=== PATIENT | male | born 1990 | race Caucasian/White ===

== ENCOUNTER → 2017-07-21 | Outpatient (CLI) | payer OTHER ==
[~2017-07-21] MED LIST: ACET-1311 PEG; ACET650S10 PR; AZIT250T PO; BISA10SU3 PR; DEXT1SYP21 PEG; DIVA500T59 PEG; DONE5TAB9 PEG; DSY/150 PEG; DULCOLAX SUPPOSITORY RE; ENOX30IN4 SQ; GABA-112 PEG; GABA1SOL4 PEG; HYOS1TAB PEG; HYOS1TAB SL; LITHIUM PEG; LORA-741 PEG; LORA2CON PEG; MELA1TAB5 PEG; MOML PEG; MOMLX PEG; MRLP17 PEG; NUTR1LIQ PEG; NYSS/ BU; OXYC10SO PEG; OXYC10SO PO; OXYC15TA89 PEG; POLY335019 PEG; PROP20TA66 PEG; SODIENE PR; TMFUDL75 PO; TRAZ100T29 PEG; VALP250S16 PEG; ZIPR1CAP5 PEG; ZIPR60CA PEG; [UNRECOGNIZED DRUG - CODE] PEG; [UNRECOGNIZED DRUG - CODE] PEG; [UNRECOGNIZED DRUG - OTHER] PEG
[2017-07-21 16:07] LABS: HEMATOCRIT 45.5 % (42-52); HEMOGLOBIN 14.4 g/dL (14.0-18.0); MEAN CELL VOLUME 89.4 fL (80-100); MEAN CORPUSCULAR HEMOGLOBIN 28.3 pg (25-34); MEAN CORPUSCULAR HGB CONC 31.6 g/dl (32-36); PLATELET COUNT 166 K/uL (130-400); RED CELL DISTRIBUTION WIDTH CV 14.7 % (11.5-14.5); WHITE BLOOD COUNT 8.43 K/uL (4.8-10.8)
[2017-07-21 16:08] LABS: BASO % 0.4 %; BASO ABS # 0.03 K/uL (0-0.2); EOS % 0.8 %; EOS ABS # 0.07 K/uL (0-0.5); IG# 0.03 K/uL (0.00-0.02); LYMPH % 30.8 %; MEAN PLATELET VOLUME 12.5 fL (7.4-10.4); MONO % 7.7 %; MONO ABS # 0.65 K/uL (0.11-0.59); NEUT % 59.9 %; NEUT ABS # 5.05 K/uL (1.4-6.5)
[2017-07-21 16:21] LABS: ALT/SGPT 25 U/L (12-78); AST/SGOT 11 U/L (15-37); BLOOD UREA NITROGEN 14 mg/dl (7-18); CARBON DIOXIDE 29 mmol/L (21-32); CREATININE 0.66 mg/dl (0.60-1.40); GLUCOSE 98 mg/dl (70-99); POTASSIUM 3.7 mmol/L (3.5-5.1); SODIUM 141 mmol/L (136-145)
[2017-07-21 16:24] LABS: ALKALINE PHOSPHATASE 132 U/L (45-117); TOTAL PROTEIN 6.9 gm/dl (6.4-8.2)
== END ==
LOC: C.LABUPNIT 15:54
PROVIDERS: ATTEND Nurse Practitioner Family
DX: R50.9 Fever, unspecified (principal)

== ENCOUNTER → 2017-07-22 | Outpatient (CLI) | payer OTHER | LOC: C.LABUPNIT 08:55 | PROVIDERS: ATTEND Nurse Practitioner Family | DX: N39.0 Urinary tract infection, site not specified (principal) ==

== ENCOUNTER 2017-08-07 03:39 | Observation (INO) | payer OTHER ==
[~2017-08-07] VITALS: Ht 177.8 cm; Wt 81.1 kg
[2017-08-07] MEDS ORDERED: DONE5TAB9 PEG (03:49)
[2017-08-07] MEDS ORDERED: MELA1TAB5 PEG (03:52)
[2017-08-07] MEDS ORDERED: POLY335019 PEG (03:53)
[2017-08-07] MEDS ORDERED: TRAZ100T29 PEG (03:55)
[2017-08-07] MEDS ORDERED: ZIPR60CA PEG (03:57)
[2017-08-07] MEDS ORDERED: LORA-741 PEG (03:58)
[2017-08-07] MEDS ORDERED: ENOX30IN4 SQ (03:59)
[2017-08-07] MEDS ORDERED: LITHIUM PEG (04:02)
[2017-08-07] MEDS ORDERED: DIVA500T59 PEG (04:04)
[2017-08-07] MEDS ORDERED: SODIUM CHLORIDE 0.9% 1000ML 2,000 ML IV STA (04:04)
[2017-08-07] MEDS ORDERED: ACETAMINOPHEN 325 MG SUPP PR STA (04:04)
[2017-08-07] MEDS ORDERED: [UNRECOGNIZED DRUG - CODE] PEG (04:06)
[2017-08-07] MEDS ORDERED: GABA-112 PEG (04:09)
[2017-08-07] MEDS ORDERED: OXYC15TA89 PEG (04:12)
[2017-08-07] MEDS ORDERED: [UNRECOGNIZED DRUG - OTHER] PEG (04:14)
[2017-08-07] MEDS ORDERED: VALP250S16 PEG (04:15)
[2017-08-07] MEDS ORDERED: NYSS/ BU (04:18)
[2017-08-07] MEDS ORDERED: NUTR1LIQ PEG (04:20)
[2017-08-07] MEDS ORDERED: ACET-1311 PEG (04:22)
[2017-08-07] MEDS ORDERED: ACET650S10 RE (04:24)
[2017-08-07] MEDS ORDERED: IBUPROFEN 800 MG TAB PO STA (04:25)
[2017-08-07] MEDS ORDERED: DULCOLAX SUPPOSITORY RE (04:26)
[2017-08-07] MEDS ORDERED: HYOS1TAB SL (04:28)
[2017-08-07] MEDS ORDERED: MOML PEG (04:29)
[2017-08-07] MEDS ORDERED: IBUPROFEN 200 MG/10 ML UDC ONE (05:04)
[2017-08-07 05:10] LABS: BASO % 0.1 %; BASO ABS # 0.01 K/uL (0-0.2); HEMOGLOBIN 14.1 g/dL (14.0-18.0); IG# 0.07 K/uL (0.00-0.02); LYMPH % 11.8 %; LYMPH ABS # 0.87 K/uL (1.2-3.4); MEAN CELL VOLUME 88.7 fL (80-100); MEAN CORPUSCULAR HEMOGLOBIN 29.1 pg (25-34); MEAN CORPUSCULAR HGB CONC 32.8 g/dl (32-36); MEAN PLATELET VOLUME 11.3 fL (7.4-10.4); MONO % 16.6 %; MONO ABS # 1.23 K/uL (0.11-0.59); NEUT % 70.6 %; NEUT ABS # 5.21 K/uL (1.4-6.5); PLATELET COUNT 141 K/uL (130-400); RED CELL DISTRIBUTION WIDTH CV 14.7 % (11.5-14.5); RED CELL DISTRIBUTION WIDTH SD 47.8 fL (36.4-46.3); WHITE BLOOD COUNT 7.39 K/uL (4.8-10.8)
[2017-08-07 05:25] LABS: INR 1.1 (0.9-1.1); PTT PATIENT 28.6 SECONDS (21.0-31.0)
[2017-08-07 05:30] LABS: ALBUMIN 3.1 gm/dl (3.4-5.0); CALCIUM 8.6 mg/dl (8.5-10.1); CREATININE 0.72 mg/dl (0.60-1.40)
[2017-08-07 05:32] LABS: TOTAL PROTEIN 7.1 gm/dl (6.4-8.2)
[2017-08-07 05:44] LABS: INFLUENZA B ANTIGEN Neg for Influ B (NEG)
[2017-08-07] MEDS ORDERED: OSELTAMIVIR PHOSPHATE SUSP 75 MG/12.5 ML UDP PO SCH (06:00)
[2017-08-07] MEDS ORDERED: MAGNESIUM HYDROXIDE SUSP 30 ML UDC PEG PRN (06:15)
[2017-08-07] MEDS ORDERED: HYOSCYAMINE SULFATE 0.125 MG SL TAB SL PRN (06:15)
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
[2017-08-07] MEDS ORDERED: POLYETHYLENE (MIRALAX) 17 GM PACK PO PRN (07:00)
--- NOTE | 2017-08-07 07:00 | DIAGNOSTIC IMAGING REPORT ---
SINGLE VIEW CHEST CLINICAL HISTORY: Sepsis. FINDINGS: An AP, portable, upright chest radiograph is obtained. No prior studies are available for comparison at the time of dictation. The examination is degraded by portable technique and patient rotation. A ventriculoperitoneal shunt catheter traverses the right chest wall. The cardiomediastinal silhouette is unremarkable. The lungs and pleural spaces are clear. No pneumothorax is seen. The skeletal structures are osteopenic. The bony thorax is grossly intact. IMPRESSION: No acute cardiopulmonary abnormality. Electronically signed by: Kali Diggs M.D. 08/07/2017 6:58 AM Dictated Date/Time: 08/07/2017 6:58 AM
[2017-08-07] MEDS ORDERED: IV FLUIDS COMPLETED PRN (07:15)
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
[2017-08-07] MEDS ORDERED: IMPACT LIQ 1000 ML BAG PEG SCH (08:00)
--- NOTE | 2017-08-07 08:14 | DIAGNOSTIC IMAGING REPORT ---
CT SCAN OF THE BRAIN WITHOUT IV CONTRAST CLINICAL HISTORY: Fall. COMPARISON STUDY: CT of the brain dated 05/09/2008. TECHNIQUE: Unenhanced axial CT scan of the brain is performed from the vertex to the skull base. A dose lowering technique was utilized adhering to the principles of ALARA. CT DOSE: 537.48 mGy.cm FINDINGS: Brain parenchyma: A right posterior parietal approach ventricular ostomy catheter is in place. The tip terminates adjacent to the septum pellucidum at the roof of the third ventricle. Transverse ventricular diameter measures 5.7 cm at the level of the frontal horns. 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 There is no hemorrhage, mass effect, or evidence of acute territorial ischemia by CT criteria. Patel-white matter is preserved. No extra-axial fluid collection is seen. Dural thickening along the left convexity is likely related to previous surgery. Ventricles, sulci, cisterns: There is dilatation of the ventricles out of portion to the cortical sulci. There is no transependymal flow of CSF. Intracranial vasculature: The visualized intracranial vasculature at the skull base is normal in appearance. Calvarium: The skeletal structures are osteopenic. There is evidence of left temporal craniectomy with extensive left-sided craniotomy. A sharif hole is present in the right posterior parietal calvarium. Sinuses and mastoids: Fluid and calcific debris is present within the right sphenoid sinus. The remaining visualized paranasal sinuses are clear. The mastoid air cells are well pneumatized. Orbits: The bony orbits are grossly intact. IMPRESSION: 1. There is no hemorrhage, mass effect, or evidence of acute territorial ischemia by CT criteria. 2. A right parietal approach ventricular shunt catheter is in place. There is ventriculomegaly which is of indeterminant chronicity and significance. Correlation with prior outside imaging studies will be required. 3. 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 Electronically signed by: Kali Diggs M.D. 08/07/2017 8:12 AM Dictated Date/Time: 08/07/2017 8:07 AM
[2017-08-07] MEDS ORDERED: VALPROIC ACID 250 MG/5 ML UDP PEG SCH (09:00)
[2017-08-07] MEDS ORDERED: DIVALPROEX SODIUM 500 MG DELAY RELEASE TAB OPR SCH (09:00)
[2017-08-07 09:39] VITALS: BP 100/63; PULSE 66; TEMP 36.9; O2SAT 96; BMI 25.7
[2017-08-07] MEDS ORDERED: LORAZEPAM 0.5 MG TAB PEG PRN (11:30)
[2017-08-07] MEDS: LORAZEPAM 0.5 MG TAB PEG SCH ×2 (11:35→21:43)
[2017-08-07] MEDS: NYSTATIN SUSP 500,000 U/5 ML UDC BU SCH ×4 (12:14→21:33)
[2017-08-07] MEDS: ZIPRASIDONE 20 MG CAP GT SCH (12:16)
[2017-08-07] MEDS: PROPRANOLOL HCL 20 MG TAB PEG SCH ×3 (12:19→21:34)
[2017-08-07] MEDS: LITHIUM ORAL SOLN 300MG/5 ML UDP PO SCH ×2 (12:20→21:34)
[2017-08-07] MEDS: GABAPENTIN 250 MG/5 ML 470 ML BTL PEG SCH ×3 (12:20→21:48)
[2017-08-07] MEDS: GUAIFENESIN/DEXTROM SYRUP 100MG/10MG 5ML UDC PO SCH ×3 (12:21→21:33)
[2017-08-07] MEDS: ENOXAPARIN 30 MG/0.3 ML SYR SQ SCH ×2 (12:22→21:35)
[2017-08-07] MEDS: OXYCODONE HCL SOLN 5 MG/5 ML UDC PO SCH ×3 (12:28→21:43)
[2017-08-07] MEDS: VALPROIC ACID SYRUP 250 MG/5 ML PEG SCH ×2 (13:26→21:34)
[2017-08-07 17:00] VITALS: Ht 177.8 cm; Wt 81.1 kg
[2017-08-07] MEDS: ACETAMINOPHEN 325 MG TAB PO PRN ×2 (17:31→23:33)
[2017-08-07 17:51] VITALS: BP 95/60; PULSE 55; TEMP 36.3; O2SAT 95
--- NOTE | 2017-08-07 19:40 | Progress Note ---
Progress Note Date of Service Aug 07, 2017. Progress Note Patient admitted this morning and I saw him around 9 AM. Chart was reviewed, history reviewed with patient's mother at the bedside. He was sent over from the senior living as he had a fall getting out of bed and was found to have a fever. He was influenza A positive in the emergency room, chest x-ray was without pneumonia, and he was febrile with tachycardia. His medication reconciliation was reviewed from the senior living and changes were discussed with the pharmacist on the phone. Vitals reviewed Patient lying in bed and is agitated, yelling out not intelligible Regular rate and rhythm, no murmurs Rubs Lungs Clear Bilaterally Abdomen Positive Bowel Sounds Soft Nontender Nondistended, PEG Tube in Place with Mild Erythema around the PEG Tube Site Extremities No Edema [id number] Male with History of TBI, PLEAT TAPER Shunt, PEG Tube, seizure disorder, here with influenza A and sepsis -Continue Tamiflu and supportive care -Continue home medications
[2017-08-07] MEDS: TUBE FEEDING WATER FLUSH NG SCH ×2 (20:00→23:44)
[2017-08-07] MEDS: PEPTAMEN 1.5 CAL 1000ML BAG PEG SCH (20:41)
[2017-08-07] MEDS ORDERED: TRAZODONE HCL 100 MG TAB PO SCH (21:00)
[2017-08-07] MEDS ORDERED: DONEPEZIL HCL 5 MG TAB PO SCH (21:00)
[2017-08-07] MEDS: OSELTAMIVIR PHOSPHATE SUSP 75 MG/12.5 ML UDP PO SCH (21:48)
[2017-08-07 23:14] VITALS: BP 114/77; PULSE 73; TEMP 39; O2SAT 92
[2017-08-07 23:16] VITALS: TEMP 38
[2017-08-08 00:38] VITALS: TEMP 37.7
[2017-08-08 03:02] VITALS: TEMP 37.6
[2017-08-08] MEDS: TUBE FEEDING WATER FLUSH NG SCH ×3 (04:06→12:37)
[2017-08-08 04:16] VITALS: TEMP 37.6
[2017-08-08] MEDS: PEPTAMEN 1.5 CAL 1000ML BAG PEG SCH ×3 (06:24→13:00)
[2017-08-08 07:05] VITALS: BP 119/80; PULSE 65; TEMP 36.4; O2SAT 97
[2017-08-08] MEDS: LORAZEPAM 0.5 MG TAB PEG SCH (07:57)
[2017-08-08] MEDS: OXYCODONE HCL SOLN 5 MG/5 ML UDC PO SCH (07:57)
[2017-08-08] MEDS: NYSTATIN SUSP 500,000 U/5 ML UDC BU SCH ×2 (07:58→13:00)
[2017-08-08] MEDS: VALPROIC ACID SYRUP 250 MG/5 ML PEG SCH (07:58)
[2017-08-08] MEDS: ZIPRASIDONE 20 MG CAP GT SCH (07:58)
[2017-08-08] MEDS: GUAIFENESIN/DEXTROM SYRUP 100MG/10MG 5ML UDC PO SCH (07:59)
[2017-08-08] MEDS: PROPRANOLOL HCL 20 MG TAB PEG SCH (07:59)
[2017-08-08] MEDS: OSELTAMIVIR PHOSPHATE SUSP 75 MG/12.5 ML UDP PO SCH (08:00)
[2017-08-08] MEDS: ENOXAPARIN 30 MG/0.3 ML SYR SQ SCH (08:00)
[2017-08-08] MEDS: LITHIUM ORAL SOLN 300MG/5 ML UDP PO SCH (08:00)
[2017-08-08] MEDS: GABAPENTIN 250 MG/5 ML 470 ML BTL PEG SCH (08:00)
[2017-08-08] MEDS ORDERED: POLYETHYLENE (MIRALAX) 17 GM PACK PO SCH (09:00)
[2017-08-08] MEDS ORDERED: TMFUDL75 PO (09:32)
[2017-08-08] MEDS ORDERED: OXYC10SO PO (09:34)
--- NOTE | 2017-08-08 09:41 | Discharge Instructions ---
Discharge Instructions Date of Service Aug 08, 2017. Admission Reason for Admission: Influenza A Discharge Discharge Diagnosis / Problem: Influenza A Discharge Goals Goal(s): Improve disease control, Therapeutic intervention Activity Recommendations Activity Level: Assistance Required Shower/Bathe: no limitations . Additional Information Patient informed of condition: Yes Advance Directives: No DNR: No Level of Care: Skilled Communicable Disease: Yes (Influenza A) Prognosis: Stable Oxygen at (LPM): N/A Min Catheter: No Instructions / Follow-Up Instructions / Follow-Up Patient admitted with Influenza A, fever. All labs were normal, vitals all normal except fever which has now resolved. Not requiring oxygen, no PNA on chest xray. Mental status at baseline as per mother. Stable for discharge back to [facility] to complete 5 day course Tamiflu. Current Hospital Diet Patient's current hospital diet: Discharge Diet Recommended Diet: N/A (PEG tube feeds) Procedures Procedures Performed: Chest xray Head CT-similar to previous obtained from hospitalization in [place] Pending Studies Studies pending at discharge: yes List of pending studies: Final Blood culture results-no growth to date Physician Orders On Transfer Special Precautions: Seizure/Fall risk Dressing Changes: N/A IV Therapy: None Vital Signs: Routine Weigh: Routine Additional Orders: None POLST Discussion: Not Applicable Medical Emergencies . Who to Call and When: Medical Emergencies: If at any time you feel your situation is an emergency, please call 911 immediately. . Non-Emergent Contact Non-Emergency issues call your: Primary Care Provider Worsening shortness of breath, worsening mental status. . . "Provider Documentation" section prepared by Katlyn Cronin. . Core Measure Problem Core Measures: None
--- NOTE | 2017-08-08 09:46 | Discharge Summary ---
Discharge Summary Date of Service Aug 08, 2017. Discharge Summary Admission Date: Aug 07, 2017 at 07:02 Discharge Date: Aug 08, 2017 Discharge Disposition: snf facility ([facility]) Principal Diagnosis: Influenza A, fever Problems/Secondary Diagnoses: TBI TRIAGE LICENSED PRACTICAL NURSE Shunt in place Seizure disorder PEG tube in place Anxiety disorder Procedures: CT Head CXR Consultations: None Medication Reconciliation New Medications: Oseltamivir Phosphate (Tamiflu) 6 Mg/Ml [place] 75 MG PO BID for 4 Days Continued Medications: Acetaminophen (Tylenol) 325 Mg Tab 650 MG PEG Q4 PRN for TEMP OVER 101, TAB Acetaminophen (Tylenol) 650 Mg Supp 650 MG RE Q6 PRN for MILD PAIN Dextromethorphan (Bulk) (Dextromethorphan) 1 Pow Pow 15 ML PEG TID DOSE 10-100MG/5ML Donepezil HCl (Aricept) 5 Mg Tab 5 MG PEG HS for 90 Days, TAB 3 Refills Enoxaparin (Lovenox) 30 Mg/0.3 Ml Inj 30 MG SQ BID, SYR Enteral Nutrition Formula (Osmolite Hn 1.5 [place]) 1,000 Ml/ Liqd 5 CAN PEG 5XD, CAN Gabapentin (Neurontin) 100 Mg Cap 12 ML PEG TID, CAP DOSE 250MG/5ML Hyoscyamine Sulfate (Levsin) 0.125 Mg Tab 0.125 MG SL Q4 PRN for SECRETIONS, TAB Lorazepam (Ativan) 0.5 Mg Tab 0.5 MG PEG BID, TAB Magnesium Hydroxide (Milk Of Magnesia) 30 Ml Susp 30 ML PEG DIRECTED PRN for CONSTIPATION, ML 1200MG/15ML Melatonin (Kp Melatonin) 3 Mg Tab 6 MG PEG HS PRN for Sleep for 30 Days, #30 TAB Nystatin (Nystatin Suspension) 1 Ml Susp 5 ML BU QID DOSE 065631 UNITS/ML Oxycodone Oral Soln (Roxicodone Oral Soln) 5 Mg/5 Ml Soln 5 MG PO TID for 30 Days Polyethylene Glycol 3350 (Miralax) 1 Pow Pow 17 GM PEG DAILY PRN for CONSTIPATION, #255 GM Trazodone Hcl (Trazodone) 100 Mg Tab 300 MG PEG HS, TAB Valproic Acid Syrup (Depakene) 250 Mg/5 Ml Syrp 20 ML PEG TID, ML DOSE 250MG/5ML Ziprasidone Hcl (Geodon) 60 Mg Cap 60 MG PEG DAILY, CAP [Dulcolax Suppository] () 10 MG RE DIRECTED PRN for CONSTIPATION [[place] Solution] () 5 ML PEG BID LITHIUM SOLUTION 8 MEQ/5ML [Propanolol Hcl] () 20 MG PEG TID Discharge Exam Pt with resolving fevers, unable to give history. Was restless for a while this AM and resting at the time of my exam. ROS unobtainable. Review of Systems: Constitutional: No fever Physical Exam: General Appearance: WD/WN, no apparent distress Eyes: normal inspection ENT: + pertinent finding (no rhinorrhea noted) Neck: trachea midline Respiratory/Chest: lungs clear, normal breath sounds, no respiratory distress, no accessory muscle use Cardiovascular: regular rate, rhythm, no edema, no gallop, no JVD, no murmur , normal peripheral pulses Abdomen / GI: normal bowel sounds, non tender, soft, no organomegaly, + pertinent finding (PEG tube in place) Extremities: normal inspection, no calf tenderness, normal capillary refill , no pedal edema Neurologic/Psychiatric: + disoriented, + pertinent finding (sleeping) Skin: normal color, warm/dry, no rash Hospital Course Patient admitted with Influenza A, fever. All labs were normal, vitals all normal except fever which has now resolved. Not requiring oxygen, no PNA on chest xray. Mental status at baseline as per mother. Stable for discharge back to Snf to complete 5 day course Tamiflu. Total Time Spent: Less than 30 minutes This includes examination of the patient, discharge planning, medication reconciliation, and communication with other providers. Discharge Instructions Please refer to the electronic Patient Visit Report (Discharge Instructions) for additional information. Follow-Up PCP within 1-2 days Additional Copies To [facility]
[2017-08-08 11:18] VITALS: BP 119/80; PULSE 65; TEMP 36.4; O2SAT 97
== END 2017-08-08 13:21 ==
LOC: EDBD 03:39 → C.EDA 03:40 → C.MSN 07:02 → EDBEDREQ 07:41 → ENRESERV 08:19
PROVIDERS: ADMIT Internal Medicine; ATTEND Internal Medicine
DX: J09.X2 Influenza due to identified novel influenza A virus with other respiratory manifestations (principal); B37.0 Candidal stomatitis; G40.909 Epilepsy, unspecified, not intractable, without status epilepticus; Z98.2 Presence of cerebrospinal fluid drainage device; Z87.820 Personal history of traumatic brain injury; Z91.81 History of falling

== ENCOUNTER → 2017-08-23 | Outpatient (CLI) | payer OTHER ==
[~2017-08-23] MED LIST changes: -DIVA500T59 PEG; -OXYC15TA89 PEG
[2017-08-23 08:27] LABS: HEMATOCRIT 40.7 % (42-52); MEAN CELL VOLUME 93.3 fL (80-100); MEAN CORPUSCULAR HEMOGLOBIN 29.8 pg (25-34); MEAN CORPUSCULAR HGB CONC 31.9 g/dl (32-36); MEAN PLATELET VOLUME 12.6 fL (7.4-10.4); PLATELET COUNT 146 K/uL (130-400); RED CELL DISTRIBUTION WIDTH CV 15.9 % (11.5-14.5); WHITE BLOOD COUNT 9.21 K/uL (4.8-10.8)
[2017-08-23 08:44] LABS: ALBUMIN 2.7 gm/dl (3.4-5.0); ALKALINE PHOSPHATASE 100 U/L (45-117); ALT/SGPT 22 U/L (12-78); AST/SGOT 17 U/L (15-37); BLOOD UREA NITROGEN 12 mg/dl (7-18); CALCIUM 8.9 mg/dl (8.5-10.1); CARBON DIOXIDE 31 mmol/L (21-32); CREATININE 0.73 mg/dl (0.60-1.40); GLUCOSE 86 mg/dl (70-99); POTASSIUM 4.6 mmol/L (3.5-5.1); SODIUM 145 mmol/L (136-145); TOTAL PROTEIN 6.1 gm/dl (6.4-8.2)
== END ==
LOC: C.LABUPNIT 07:42
PROVIDERS: ATTEND Nurse Practitioner Family
DX: M62.81 Muscle weakness (generalized) (principal)

== ENCOUNTER 2017-08-25 13:36 | Emergency (ER) | payer OTHER ==
[~2017-08-25] VITALS: Ht 172.7 cm; Wt 82.0 kg
[~2017-08-25 13:36] MED LIST changes: -AZIT250T PO; -BISA10SU3 PR; -DEXT1SYP21 PEG; -DSY/150 PEG; -GABA1SOL4 PEG; -HYOS1TAB PEG; -LORA2CON PEG; -MOMLX PEG; -MRLP17 PEG; -OXYC10SO PEG; -PROP20TA66 PEG; -SODIENE PR; -ZIPR1CAP5 PEG; -[UNRECOGNIZED DRUG - CODE] PEG
[2017-08-25 13:42] VITALS: BP 111/60; PULSE 102; TEMP 37.2; O2SAT 98; Ht 172.7 cm; Wt 82.0 kg
[2017-08-25] MEDS ORDERED: DEXT1SYP21 PEG (14:12)
[2017-08-25] MEDS ORDERED: LORA2CON PEG ×2 (14:12→14:39)
[2017-08-25] MEDS ORDERED: GABA1SOL4 PEG (14:23)
[2017-08-25] MEDS ORDERED: SODIENE PR (14:23)
[2017-08-25] MEDS ORDERED: BISA10SU3 PR (14:23)
[2017-08-25 14:31] LABS: INFLUENZA B ANTIGEN Neg for Influ B (NEG)
[2017-08-25] MEDS ORDERED: OXYC10SO PEG (14:39)
[2017-08-25] MEDS ORDERED: AZIT250T PO (14:39)
[2017-08-25] MEDS ORDERED: HYOS1TAB PEG (14:39)
[2017-08-25] MEDS ORDERED: ZIPR1CAP5 PEG (14:39)
[2017-08-25] MEDS ORDERED: MOMLX PEG (14:39)
[2017-08-25] MEDS ORDERED: NYSS/ BU (14:39)
[2017-08-25] MEDS ORDERED: [UNRECOGNIZED DRUG - CODE] PEG (14:39)
[2017-08-25] MEDS ORDERED: MRLP17 PEG (14:39)
[2017-08-25] MEDS ORDERED: VALP250S16 PEG (14:39)
[2017-08-25] MEDS ORDERED: PROP20TA66 PEG (14:39)
[2017-08-25] MEDS ORDERED: DSY/150 PEG (14:39)
--- NOTE | 2017-08-25 14:44 | DIAGNOSTIC IMAGING REPORT ---
CHEST 2 VIEWS ROUTINE CLINICAL HISTORY: [facility] dyspnea COMPARISON STUDY: 08/07/2017 FINDINGS: The lungs are clear. Diaphragms are smooth. No evidence for cardiac enlargement. Right-sided drainage catheter is unaltered. Old fractures of the clavicles are again noted. IMPRESSION: No acute process. The above report was generated using voice recognition software. It may contain grammatical, syntax or spelling errors. Electronically signed by: Stephan Justice M.D. 08/25/2017 2:43 PM Dictated Date/Time: 08/25/2017 2:42 PM
--- NOTE | 2017-08-25 14:45 | DIAGNOSTIC IMAGING REPORT ---
KUB CLINICAL HISTORY: 27 years-old Male presenting with feeding tube dislodged. TECHNIQUE: Single supine view of the abdomen was obtained both before and after administration of 100 mL of water-soluble contrast via the gastrostomy tube. COMPARISON: 07/14/2006. FINDINGS: Initial precontrast radiograph demonstrates a gastrostomy tube projecting over the epigastrium. Nonobstructive bowel gas pattern. A ventriculoperitoneal shunt catheter is loosely looped in the pelvis. Subsequently, administration of oral contrast via the gastrostomy tube opacified the gastric lumen. No evidence of extraluminal contrast to suggest free peritoneal spillage. No evidence of holdup read free passage of contrast into the duodenum and proximal small bowel. Allowing for bowel gas and stool, no calcifications to suggest nephrolithiasis. Osseous structures normal. Lung bases clear. IMPRESSION: 1. Appropriately positioned gastrostomy tube. No evidence of peritoneal spillage of administered contrast. No bowel obstruction. Electronically signed by: Marko Segundo M.D. 08/25/2017 2:43 PM Dictated Date/Time: 08/25/2017 2:39 PM
--- NOTE | 2017-08-25 15:13 | EMERGENCY ROOM VISIT NOTE ---
History Report prepared by Gris: Thomas Wooten Under the Supervision of: Dr. Mihcael Mabry D.O. First contact with patient: 13:42 Chief Complaint: OTHER COMPLAINT Stated Complaint: PEG TUBE DISLODGED History of Present Illness The patient is a 27 year old male who presents to the Emergency Room with complaints of constant PEG tube displacement beginning today. He is a resident at [facility]. Per nursing staff, staff was unable to verify placement of the tube by X-ray three times today. She states that the patient's PEG tube is thought to possibly contain stool. She states that the patient was reported to have a fever prior to arrival (though was afebrile upon arrival). HPI limited secondary to mental status. Source of History: patient History Limited By: other (Mental status) Onset: Today Position: abdomen Quality: other (PEG tube displacement) Timing: constant Review of Systems ROS limited secondary to mental status. Past Medical & Surgical Medical Problems: (1) Influenza A (2) Mental retardation Family History Unobtainable secondary to mental status. Social History Smoking Status: Former Smoker Alcohol Use: none Drug Use: none Marital Status: single Housing Status: jail Current/Historical Medications Scheduled Azithromycin (Zithromax), 250 MG PO DAILY Dextromethorphan-Guaifenesin (Guaifenesin/Dextromethorp 10-100 mg/5Ml), 15 ML PEG TID Gabapentin (Gabapentin), 12 ML PEG TID [place] Citrate ([place] Citrate), 5 ML PEG BID Lorazepam (Lorazepam Intensol), 0.5 MG PEG BID Nystatin (Nystatin Suspension), 5 ML BU QID Oxycodone Oral Soln (Roxicodone Oral Soln), 5 ML PEG TID Polyethylene (Miralax), 17 GM PEG DAILY Propranolol HCl (Propranolol HCl), 20 MG PEG TID Trazodone HCl (Trazodone HCl), 300 MG PEG HS Valproic Acid Syrup (Depakene), 20 ML PEG TID Ziprasidone Hcl (Geodon), 60 MG PEG DAILY Scheduled PRN Bisacodyl (Dulcolax), 10 MG [place] DAILY PRN for Constipation Hyoscyamine Sulfate (Levsin), 0.125 MG PEG Q6 PRN for SECRETIONS Lorazepam (Lorazepam Intensol), 0.5 MG PEG Q12 PRN for Anxiety Magnesium Hydroxide (Milk of Magnesia), 30 ML PEG DAILY PRN for Constipation Sodium Phosphate/Biphosphate (Fleet Enema), 1 EA [place] DAILY PRN for Constipation Allergies Coded Allergies: Nickel (Unverified Allergy, Unknown, UNKNOWN, 08/25/17) Physical Exam Vital Signs Date Time Temp Pulse Resp B/P (MAP) Pulse Ox O2 Delivery O2 Flow Rate FiO2 08/25/17 13:42 37.2 102 16 111/60 98 Room Air Physical Exam GENERAL: Awake and responds to stimuli. EYES: The conjunctivae are clear. The pupils are round and reactive. EARS, NOSE, MOUTH AND THROAT: The nose is without any evidence of any deformity. Mucous membranes are moist tongue is midline NECK: The neck is nontender and supple. RESPIRATORY: Normal respiratory effort is noted there is no evidence of wheezing rhonchi or rales CARDIOVASCULAR: Regular rate and rhythm noted there no murmurs rubs or gallops normal S1 normal S2 GASTROINTESTINAL: Mildly distended but soft. No guarding or rigidity noted. Feeding tube noted in the lower abdomen. No erythema noted. MUSCULOSKELETAL/EXTREMITIES: There is no evidence of gross deformity full range of motion is noted in the hips and shoulders SKIN: There is no obvious evidence of any rash. There are no petechiae, pallor or cyanosis noted. NEUROLOGIC: Moves all extremities. Medical Decision & Procedures ER Provider Diagnostic Interpretation: Radiology results as stated below per my review and radiologist interpretation: CHEST 2 VIEWS ROUTINE FINDINGS: The lungs are clear. Diaphragms are smooth. No evidence for cardiac enlargement. Right-sided drainage catheter is unaltered. Old fractures of the clavicles are again noted. IMPRESSION: No acute process. The above report was generated using voice recognition software. It may contain grammatical, syntax or spelling errors. Electronically signed by: Stephan Justice M.D. 08/25/2017 2:43 PM KUB FINDINGS: Initial precontrast radiograph demonstrates a gastrostomy tube projecting over the epigastrium. Nonobstructive bowel gas pattern. A ventriculoperitoneal shunt catheter is loosely looped in the pelvis. Subsequently, administration of oral contrast via the gastrostomy tube opacified the gastric lumen. No evidence of extraluminal contrast to suggest free peritoneal spillage. No evidence of holdup read free passage of contrast into the duodenum and proximal small bowel. Allowing for bowel gas and stool, no calcifications to suggest nephrolithiasis. Osseous structures normal. Lung bases clear. IMPRESSION: 1. Appropriately positioned gastrostomy tube. No evidence of peritoneal spillage of administered contrast. No bowel obstruction. Electronically signed by: Marko Segundo M.D. 08/25/2017 2:43 PM Laboratory Results Test 08/25/17 13:52 Influenza Type A Antigen Neg for Influ A (NEG) Influenza Type B Antigen Neg for Influ B (NEG) Laboratory results per my review. ED Course 1346: The patient was evaluated in room C3. A complete history and physical examination were performed. Medical Decision Nursing notes reviewed. Differential diagnosis in this patient could include feeding tube dislodgment, intraperitoneal placement, infection, clogged tube and other differential diagnoses were considered. Additional history is obtained from the patient's jail documentation. The patient is a 27-year-old male who presented to the emergency department because they were unsure if his feeding tube was dislodged last evening. The feeding tube site itself appeared free of infection or drainage. X-rays were taken with radiopaque contrast and the feeding tube appears to be in proper position. The patient also had a questionable low-grade fever on his nursing documentation. Flu swab and chest x-ray were negative. The [facility]. Medication Reconcilliation Current Medication List: was personally reviewed by me Blood Pressure Screening Patient's blood pressure: Normal blood pressure Blood pressure disposition: Did not require urgent referral Impression Primary Impression: Feeding tube dysfunction Scribe Attestation The scribe's documentation has been prepared under my direction and personally reviewed by me in its entirety. I confirm that the note above accurately reflects all work, treatment, procedures, and medical decision making performed by me. Departure Information Dispostion Home / Self-Care Referrals Viet Grier (PCP) Forms HOME CARE DOCUMENTATION FORM, IMPORTANT VISIT INFORMATION, WORK / SCHOOL INSTRUCTIONS Patient Instructions Feeding Tube PEG, My [facility] Additional Instructions The feeding tube was in the proper position on x-ray in the emergency department today. The patient had a chest x-ray as well as a flu swab which were negative. Continue using the feeding tube as previous. Problem Qualifiers Primary Impression: Feeding tube dysfunction Encounter type: initial encounter Qualified Codes: T85.598A - Other mechanical complication of other gastrointestinal prosthetic devices, implants and grafts, initial encounter
== END 2017-08-25 16:14 ==
LOC: EDBD 13:36 → C.EDC 13:37
DX: Z43.1 Encounter for attention to gastrostomy (principal); F79 Unspecified intellectual disabilities; Z87.891 Personal history of nicotine dependence; Z91.048 Other nonmedicinal substance allergy status

== ENCOUNTER → 2017-08-26 | Outpatient (CLI) | payer OTHER ==
[~2017-08-26] MED LIST changes: -ACET-1311 PEG; -ACET650S10 PR; +AZIT250T PO; +BISA10SU3 PR; +DEXT1SYP21 PEG; -DONE5TAB9 PEG; +DSY/150 PEG; -DULCOLAX SUPPOSITORY RE; -ENOX30IN4 SQ; -GABA-112 PEG; +GABA1SOL4 PEG; +HYOS1TAB PEG; -HYOS1TAB SL; -LITHIUM PEG; -LORA-741 PEG; +LORA2CON PEG; -MELA1TAB5 PEG; -MOML PEG; +MOMLX PEG; +MRLP17 PEG; -NUTR1LIQ PEG; +OXYC10SO PEG; -OXYC10SO PO; -POLY335019 PEG; +PROP20TA66 PEG; +SODIENE PR; -TMFUDL75 PO; -TRAZ100T29 PEG; +ZIPR1CAP5 PEG; -ZIPR60CA PEG; +[UNRECOGNIZED DRUG - CODE] PEG; -[UNRECOGNIZED DRUG - CODE] PEG; -[UNRECOGNIZED DRUG - OTHER] PEG
== END ==
LOC: C.LABUPNIT 15:43
PROVIDERS: ATTEND Nurse Practitioner Family
DX: R50.9 Fever, unspecified (principal)

== ENCOUNTER → 2017-09-08 | Outpatient (CLI) | payer OTHER ==
[2017-09-08 09:28] LABS: ALT/SGPT 34 U/L (12-78); BLOOD UREA NITROGEN 13 mg/dl (7-18); CALCIUM 8.9 mg/dl (8.5-10.1); CARBON DIOXIDE 33 mmol/L (21-32); GLUCOSE 71 mg/dl (70-99); POTASSIUM 3.9 mmol/L (3.5-5.1); SODIUM 142 mmol/L (136-145)
[2017-09-08 09:31] LABS: ALKALINE PHOSPHATASE 99 U/L (45-117); AST/SGOT 14 U/L (15-37); TOTAL PROTEIN 6.3 gm/dl (6.4-8.2)
[2017-09-08 09:40] LABS: BASO % 0.2 %; BASO ABS # 0.02 K/uL (0-0.2); EOS % 2.6 %; EOS ABS # 0.21 K/uL (0-0.5); HEMATOCRIT 42.8 % (42-52); HEMOGLOBIN 13.3 g/dL (14.0-18.0); IG# 0.07 K/uL (0.00-0.02); LYMPH % 39.7 %; LYMPH ABS # 3.26 K/uL (1.2-3.4); MEAN CELL VOLUME 94.3 fL (80-100); MEAN CORPUSCULAR HEMOGLOBIN 29.3 pg (25-34); MEAN CORPUSCULAR HGB CONC 31.1 g/dl (32-36); MONO % 7.7 %; MONO ABS # 0.63 K/uL (0.11-0.59); NEUT % 48.9 %; NEUT ABS # 4.02 K/uL (1.4-6.5); PLATELET COUNT 116 K/uL (130-400); RED CELL DISTRIBUTION WIDTH CV 15.3 % (11.5-14.5); RED CELL DISTRIBUTION WIDTH SD 52.7 fL (36.4-46.3); WHITE BLOOD COUNT 8.21 K/uL (4.8-10.8)
== END ==
LOC: C.LABUPNIT 08:59
PROVIDERS: ATTEND Nurse Practitioner Family
DX: S06.9X9S Unspecified intracranial injury with loss of consciousness of unspecified duration, sequela (principal); X58.XXXS Exposure to other specified factors, sequela; F34.81 Disruptive mood dysregulation disorder

== ENCOUNTER → 2017-10-06 | Outpatient (CLI) | payer OTHER ==
[2017-10-06 11:09] LABS: ALBUMIN 3.1 gm/dl (3.4-5.0); ALT/SGPT 35 U/L (12-78); BLOOD UREA NITROGEN 14 mg/dl (7-18); CALCIUM 8.8 mg/dl (8.5-10.1); CARBON DIOXIDE 29 mmol/L (21-32); CREATININE 0.63 mg/dl (0.60-1.40); GLUCOSE 77 mg/dl (70-99); POTASSIUM 4.1 mmol/L (3.5-5.1); SODIUM 143 mmol/L (136-145)
[2017-10-06 11:12] LABS: ALKALINE PHOSPHATASE 100 U/L (45-117); AST/SGOT 14 U/L (15-37); TOTAL PROTEIN 6.5 gm/dl (6.4-8.2)
== END ==
LOC: C.LABUPNIT 09:29
PROVIDERS: ATTEND Nurse Practitioner Family
DX: I10 Essential (primary) hypertension (principal)

== ENCOUNTER → 2017-10-12 | Outpatient (CLI) | payer OTHER ==
--- NOTE | 2017-10-12 14:34 | DIAGNOSTIC IMAGING REPORT ---
VIDEO SWALLOW CLINICAL HISTORY: 27 years-old Male presenting with DYSPHAGIA, past medical history of traumatic brain injury. TECHNIQUE: Video fluoroscopic evaluation of swallowing was performed in the AP and lateral projections in conjunction with speech pathology. The patient was administered various textures, including thin liquids, nectar thick liquids, and pudding. COMPARISON: None. FINDINGS: There is normal hyoid excursion and epiglottic deflection. Silent aspiration of thin liquids with a large swallow. However, small sips with a cup did not result in aspiration though intermittent deep penetration noted to the level of the vocal folds. No aspiration of nectar thick liquids or pudding consistencies. Fluoroscopy dosage (mGy): Not available. Fluoroscopy time: 0.7 minutes. Number of fluoroscopic spot images: 0. IMPRESSION: 1. Silent aspiration of thin liquids with large swallows. Otherwise no aspiration. 2. Please see the speech pathologist report for detailed findings and recommendations. Electronically signed by: Marko Segundo M.D. 10/12/2017 2:33 PM Dictated Date/Time: 10/12/2017 2:30 PM
--- NOTE | 2017-10-12 17:57 | SWALLOWING EVALUATION ---
REFERRING SPEECH PATHOLOGIST: unknown HISTORY: This 27 year-old male resident of [facility] was referred for a VFSS at [facility] in order to identify safe consistencies for optimal oral intake. The patient has a PMH significant for TBI occurring in March 2017 and resulting in seizures, placement of RECONCILING CLERK shunt and placement of PEG tube. No other PMH is known because no H&P was sent with the patient. It is likely he had no significant PMH prior to his TBI given his age. Currently the patient's diet level is regular. PROCEDURE: The patient was seen in the Radiology Department of [facility] for the VFSS. Cursory examination of the oral cavity revealed adequate dentition. Movement of the articulators was WNL as evidenced by fully intelligible speech and facial symmetry. The patient was positioned upright on a litter and was viewed in the lateral plane only due to spatial constraints. Voicing was judged to be WNL for intensity and quality. In the lateral plane, the patient was given the following boluses: single swallow thin liquid barium self-presented from a cup x 2: one a moderate mouthful and one a very large mouthful, single swallow nectar-thick liquid barium self-presented from a cup, and 1 tsp. barium pudding. Cracker bolus was offered, but rejected by the patient. This was a modified version of the MBSImP protocol due to the patient's mental status limitations and increasing agitation as the study progressed. RESULTS: Oral Stage: Interlabial bolus loss without progression to anterior lip. Unable to follow directions to attempt to hold a bolus between tongue and palate, but was observed able to do so with thin and nectar-thick liquid barium boluses. Mastication not assessed. Timely initiation of lingual movement for bolus transfer. No oral bolus retention. Pharyngeal swallow initiation occurring when the bolus head was in the pyriform sinuses. Latent pharyngeal swallow initiation, but otherwise the oral stage of the swallow was WNL for consistencies tested. Pharyngeal Stage: No bolus between soft palate and pharyngeal wall. Partial laryngeal elevation, complete anterior hyoid excursion, complete epiglottic inversion, and incomplete laryngeal vestibular closure. Pharyngeal stripping wave present. Distention and duration of PES opening was complete. Adequate tongue base retraction. No pharyngeal bolus retention. There was silent trickle aspiration of the larger thin liquid bolus, but no other aspiration during the study. Posterior bolus loss to the pharynx combined with delay in pharyngeal swallow initiation and incomplete laryngeal vestibular closure contributed to the aspiration. SUMMARY/RECOMMENDATIONS: This patient presents with moderate oral-pharyngeal dysphagia. The following is recommended: 1. Pureed diet with either thin liquids using an adaptive cup to control bolus flow or nectar-thick liquids in a typical cup. 2. Aspiration precautions: Fully upright for oral intake; encourage patient to feed himself; alternate puree and liquids 3. Consideration of f/u with [facility] services to work toward tolerating solid food consistencies and upgrading diet as tolerated; to get adaptive equipment to help with aspiration precautions; to implement diet changes and aspiration precautions A summary of the results and recommendations was discussed with was recorded on a Consultation Record and returned with the patient immediately following the study. In addition, the patient's parents were given verbal report and replied with understanding. Thank you for referral of this patient. Please contact me at if any additional information is needed.
== END | disposition home or self-care (01) ==
LOC: C.RAD 14:00
PROVIDERS: ATTEND Family Medicine
DX: R13.10 Dysphagia, unspecified (principal); R13.0 Aphagia

== ENCOUNTER → 2017-11-10 | Outpatient (CLI) | payer OTHER ==
[2017-11-10 08:34] LABS: BLOOD UREA NITROGEN 17 mg/dl (7-18); CALCIUM 8.7 mg/dl (8.5-10.1); CARBON DIOXIDE 33 mmol/L (21-32); GLUCOSE 94 mg/dl (70-99); POTASSIUM 3.3 mmol/L (3.5-5.1); SODIUM 145 mmol/L (136-145)
== END ==
LOC: C.LABUPNIT 08:08
PROVIDERS: ATTEND Nurse Practitioner Family
DX: R13.12 Dysphagia, oropharyngeal phase (principal)

== ENCOUNTER → 2017-11-12 | Outpatient (CLI) | payer OTHER ==
[2017-11-12 10:45] LABS: HEMATOCRIT 42.6 % (42-52); HEMOGLOBIN 13.6 g/dL (14.0-18.0); MEAN CELL VOLUME 95.1 fL (80-100); MEAN CORPUSCULAR HEMOGLOBIN 30.4 pg (25-34); MEAN CORPUSCULAR HGB CONC 31.9 g/dl (32-36); MEAN PLATELET VOLUME 12.9 fL (7.4-10.4); PLATELET COUNT 90 K/uL (130-400); RED CELL DISTRIBUTION WIDTH CV 13.1 % (11.5-14.5); RED CELL DISTRIBUTION WIDTH SD 45.5 fL (36.4-46.3); WHITE BLOOD COUNT 6.54 K/uL (4.8-10.8)
[2017-11-12 10:47] LABS: BLOOD UREA NITROGEN 10 mg/dl (7-18); CALCIUM 8.5 mg/dl (8.5-10.1); CARBON DIOXIDE 35 mmol/L (21-32); CREATININE 0.75 mg/dl (0.60-1.40); GLUCOSE 95 mg/dl (70-99); POTASSIUM 3.6 mmol/L (3.5-5.1); SODIUM 146 mmol/L (136-145)
[2017-11-12 11:06] LABS: BASO % 0.3 %; BASO ABS # 0.02 K/uL (0-0.2); EOS % 2.6 %; EOS ABS # 0.17 K/uL (0-0.5); IG# 0.03 K/uL (0.00-0.02); LYMPH % 39.4 %; LYMPH ABS # 2.58 K/uL (1.2-3.4); MONO % 7.5 %; MONO ABS # 0.49 K/uL (0.11-0.59); NEUT % 49.7 %; NEUT ABS # 3.25 K/uL (1.4-6.5)
== END ==
LOC: C.LABUPNIT 09:13
PROVIDERS: ATTEND Nurse Practitioner Family
DX: R50.9 Fever, unspecified (principal); I10 Essential (primary) hypertension; R41.82 Altered mental status, unspecified

== ENCOUNTER → 2017-11-16 | Outpatient (CLI) | payer OTHER ==
[2017-11-16 08:55] LABS: ALT/SGPT 50 U/L (12-78); AST/SGOT 22 U/L (15-37); BLOOD UREA NITROGEN 17 mg/dl (7-18); CALCIUM 8.5 mg/dl (8.5-10.1); CARBON DIOXIDE 35 mmol/L (21-32); CREATININE 0.63 mg/dl (0.60-1.40); GLUCOSE 95 mg/dl (70-99); POTASSIUM 3.9 mmol/L (3.5-5.1); SODIUM 148 mmol/L (136-145); TOTAL PROTEIN 6.6 gm/dl (6.4-8.2)
[2017-11-16 09:06] LABS: ALKALINE PHOSPHATASE 101 U/L (45-117); LIPASE 59 U/L (73-393)
--- NOTE | 2017-11-18 17:29 | CODING QUERY NO DIAGNOSIS ---
TREATMENT RENDERED WITHOUT A DIAGNOSIS To promote full compliance with coding requirements relating to patient care, physician participation is requested in all cases of licensing analyst uncertainty. Please assist us with providing a diagnosis/symptom for the test(s) below: A diagnosis/symptom was not documented on your Order. A valid diagnosis/symptom is required to bill all insurances. Please remember that we are unable to code a diagnosis of rule out, probable, possible, questionable, or suspected. Tests that require a diagnosis: DOS: 11/16/17 (No physician signature or diagnosis on order) * Hepatitis C DIAGNOSIS: Provider Signature: Date: Thank you Cassy Lee Health Information Management Once completed, please kindly fax back to [phone] For questions please call [phone]
== END ==
LOC: C.LABUPNIT 07:49
PROVIDERS: ATTEND Nurse Practitioner Family
DX: I10 Essential (primary) hypertension (principal); E72.20 Disorder of urea cycle metabolism, unspecified; R94.5 Abnormal results of liver function studies; R74.8 Abnormal levels of other serum enzymes; R50.9 Fever, unspecified; R53.83 Other fatigue

== ENCOUNTER → 2017-11-18 | Outpatient (CLI) | payer OTHER ==
[2017-11-18 10:29] LABS: ALBUMIN 2.9 gm/dl (3.4-5.0); TOTAL PROTEIN 6.3 gm/dl (6.4-8.2)
== END ==
LOC: C.LABUPNIT 09:25
PROVIDERS: ATTEND Nurse Practitioner Family
DX: E72.20 Disorder of urea cycle metabolism, unspecified (principal); R94.5 Abnormal results of liver function studies

== ENCOUNTER → 2017-11-19 | Outpatient (CLI) | payer OTHER ==
--- NOTE | 2017-11-19 11:35 | DIAGNOSTIC IMAGING REPORT ---
CT OF THE HEAD WITHOUT CONTRAST CLINICAL HISTORY: Increased lethargy. COMPARISON STUDY: Head CT August 07, 2017. CT DOSE: 537.48 mGy.cm TECHNIQUE: Helical axial images of the head were obtained without IV contrast. Automated exposure control was utilized for the study. A dose lowering technique was utilized adhering to the principles of ALARA. FINDINGS: No acute intracranial hemorrhage, midline shift or mass effect is noted. A right frontal ventriculostomy catheter is unchanged in position since head CT of August 07, 2017. The catheter traverses the body of the right lateral ventricle and the tip is adjacent to the septum pellucidum. Moderate ventricular dilatation is unchanged exam of August 07, 2007 and . Postsurgical findings consistent with a left-sided craniotomy are noted. Adjacent parenchymal hypodensity is unchanged and suggest encephalomalacia. There are no findings to suggest acute dural sinus thrombosis or acute territorial infarct. The appearance of the brain is similar to prior exam. There is no calvarial fracture. IMPRESSION: No change in appearance of the brain since exam of August 07, 2017. Stable moderate hydrocephalus with unchanged position of right parietal ventriculostomy catheter. Electronically signed by: James Rutherford M.D. 11/19/2017 11:34 AM Dictated Date/Time: 11/19/2017 11:25 AM
== END | disposition home or self-care (01) ==
LOC: C.CTS 10:51
PROVIDERS: ATTEND Family Medicine
DX: R53.83 Other fatigue (principal)

== ENCOUNTER → 2017-11-23 | Outpatient (CLI) | payer OTHER | END | disposition home or self-care (01) | LOC: C.LABUPNIT 08:04 | PROVIDERS: ATTEND Nurse Practitioner Family | DX: E72.20 Disorder of urea cycle metabolism, unspecified (principal) ==

== ENCOUNTER → 2017-11-25 | Outpatient (CLI) | payer OTHER ==
[2017-11-25 09:52] LABS: ALBUMIN 2.8 gm/dl (3.4-5.0); ALT/SGPT 45 U/L (12-78); AST/SGOT 22 U/L (15-37); BLOOD UREA NITROGEN 12 mg/dl (7-18); CALCIUM 8.5 mg/dl (8.5-10.1); CARBON DIOXIDE 31 mmol/L (21-32); CREATININE 0.68 mg/dl (0.60-1.40); GLUCOSE 73 mg/dl (70-99); POTASSIUM 4.1 mmol/L (3.5-5.1); SODIUM 149 mmol/L (136-145)
[2017-11-25 09:55] LABS: ALKALINE PHOSPHATASE 93 U/L (45-117); TOTAL PROTEIN 5.9 gm/dl (6.4-8.2)
== END ==
LOC: C.LABUPNIT 09:11
PROVIDERS: ATTEND Nurse Practitioner Family
DX: I10 Essential (primary) hypertension (principal); E72.20 Disorder of urea cycle metabolism, unspecified; R94.5 Abnormal results of liver function studies

== ENCOUNTER → 2017-11-29 | Outpatient (CLI) | payer OTHER ==
[2017-11-29 10:30] LABS: BLOOD UREA NITROGEN 8 mg/dl (7-18); CREATININE 0.69 mg/dl (0.60-1.40); GLUCOSE 78 mg/dl (70-99)
[2017-11-29 10:31] LABS: ALBUMIN 2.7 gm/dl (3.4-5.0); AST/SGOT 14 U/L (15-37); CALCIUM 8.5 mg/dl (8.5-10.1); CARBON DIOXIDE 32 mmol/L (21-32); POTASSIUM 4.1 mmol/L (3.5-5.1); SODIUM 147 mmol/L (136-145)
[2017-11-29 10:33] LABS: ALKALINE PHOSPHATASE 87 U/L (45-117); ALT/SGPT 33 U/L (12-78); TOTAL PROTEIN 5.8 gm/dl (6.4-8.2)
[2017-11-29 10:45] LABS: HEMATOCRIT 41.8 % (42-52); HEMOGLOBIN 13.7 g/dL (14.0-18.0); MEAN CELL VOLUME 94.6 fL (80-100); MEAN CORPUSCULAR HGB CONC 32.8 g/dl (32-36); RED CELL DISTRIBUTION WIDTH CV 13.9 % (11.5-14.5); RED CELL DISTRIBUTION WIDTH SD 47.5 fL (36.4-46.3)
[2017-11-29 10:48] LABS: MEAN PLATELET VOLUME 13.2 fL (7.4-10.4); PLATELET COUNT 107 K/uL (130-400)
== END ==
LOC: C.LABUPBEA 09:49 → C.LABUPNIT 09:52
PROVIDERS: ATTEND Nurse Practitioner Family
DX: I10 Essential (primary) hypertension (principal); Z87.820 Personal history of traumatic brain injury; Z79.899 Other long term (current) drug therapy

== ENCOUNTER → 2018-02-23 | Outpatient (CLI) | payer OTHER | LOC: C.LABUPNIT 08:05 | PROVIDERS: ATTEND Nurse Practitioner Family | DX: R79.89 Other specified abnormal findings of blood chemistry (principal) ==

== ENCOUNTER → 2018-03-10 | Outpatient (CLI) | payer OTHER | LOC: C.LABUPNIT 07:30 | PROVIDERS: ATTEND Nurse Practitioner Family | DX: R94.6 Abnormal results of thyroid function studies (principal) ==